=== PATIENT | male | born 1950 | race African-American/Black ===

== ENCOUNTER 2016-11-09 19:57 | Inpatient (IN) | payer OTHER ==
[~2016-11-09] VITALS: Ht 182.9 cm; Wt 92.1 kg
[2016-11-09 22:00] VITALS: Ht 182.9 cm; Wt 92.1 kg
[2016-11-09 22:35] VITALS: BP 138/79; RESP 18
[2016-11-10] MEDS ORDERED: ACETAMINOPHEN 325 MG TAB PO PRN (01:00)
[2016-11-10] MEDS ORDERED: MAGNESIUM HYDROXIDE 30ML CUP PO PRN (01:00)
[2016-11-10] MEDS ORDERED: BISACODYL 10 MG SUPP PR PRN (01:00)
[2016-11-10] MEDS ORDERED: LACTULOSE 30ML CUP PO PRN (01:00)
[2016-11-10 01:28] LABS: ADD UMIC NO; UR ASCORBIC ACID NEGATIVE (NEGATIVE); UR BILIRUBIN (Dip) NEGATIVE (NEGATIVE); UR BLOOD (Dip) NEGATIVE (NEGATIVE); UR CLARITY CLEAR (CLEAR); UR COLOR YELLOW (YELLOW); UR GLUCOSE (Dip) NEGATIVE (NEGATIVE); UR KETONES (Dip) NEGATIVE (NEGATIVE); UR LEUKOCYTE ESTERASE (Dip) NEGATIVE Leu/ul (NEGATIVE); UR NITRITE (Dip) NEGATIVE (NEGATIVE); UR TOTAL PROTEIN (Dip) NEGATIVE (NEGATIVE); UR UROBILINOGEN (Dip) NEGATIVE (NEGATIVE)
[2016-11-10 02:00] VITALS: BP 135/68; RESP 18
[2016-11-10 07:43] LABS: BASOPHILS % 0.2 % (0.0-2.0); EOSINOPHILS # 0.2 10^3/ul (0.0-0.5); HEMATOCRIT 45.4 % (42.0-52.0); LYMPHOCYTES # 2.1 10^3/ul (0.8-2.9); LYMPHOCYTES % 50.7 % (15.0-51.0); MEAN CORPUSCULAR HEMOGLOBIN 32.6 pg (29.0-33.0); MEAN CORPUSCULAR HGB CONC 35.2 g/dl (32.0-37.0); MEAN CORPUSCULAR VOLUME 92.5 fl (82.0-101.0); MEAN PLATELET VOLUME 9.9 fl (7.4-10.4); MONOCYTE # 0.6 10^3/ul (0.3-0.9); MONOCYTES % 14.8 % (0.0-11.0); NEUTROPHIL # 1.2 10^3/ul (1.6-7.5); NEUTROPHILS % 29.1 % (39.0-77.0); PLATELET COUNT 146 10^3/UL (140-415); RED BLOOD COUNT 4.91 10^6/ul (4.70-6.10); RED CELL DISTRIBUTION WIDTH 12.3 % (11.5-14.5); WHITE BLOOD COUNT 4.2 10^3/ul (4.8-10.8)
[2016-11-10 08:00] VITALS: BP 140/70; RESP 18
[2016-11-10 08:08] LABS: ALBUMIN 3.7 g/dl (3.3-4.9); ALBUMIN/GLOBULIN RATIO 0.9; BILIRUBIN,INDIRECT 0.6 mg/dl (0-1.1); BILIRUBIN,TOTAL 0.6 mg/dl (0.2-1.3); CALCIUM 10.7 mg/dl (8.4-10.2); CREATININE 0.92 mg/dl (0.61-1.24); TOTAL PROTEIN 7.8 g/dl (6.1-8.1)
[2016-11-10] MEDS: LISINOPRIL 20 MG TAB PO SCH (09:13)
[2016-11-10] MEDS: ASPIRIN 325 MG TAB PO SCH (09:13)
[2016-11-10] MEDS: LOSARTAN 50 MG TAB PO SCH (09:13)
[2016-11-10] MEDS: HYDROCHLOROTHIAZIDE 12.5 MG CAP PO SCH (09:14)
[2016-11-10] MEDS: DOCUSATE SODIUM 100 MG CAP PO SCH ×2 (09:14→20:54)
--- NOTE | 2016-11-10 09:56 | CONS ---
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 Hypertension 2. dysphagia 3. Impairments in self-care, mobility and cognition. PLAN: The patient has been admitted for comprehensive interdisciplinary acute rehab and is anticipated to tolerate 3 hours of daily therapy in divided doses for at least 5/7 days a week. The treatment plan will include: 1. Physical therapy to focus on bed mobility, transfers, and household ambulation with the goal of having the patient reach a standby assist for ambulation. 2. Occupational therapy to focus on hygiene, grooming, dressing, bathing, and toileting activities with the goal of having the patient reach a standby assist level. 3. Speech therapy for full cognitive and communication assessment and retraining in addition to dysphagia management with the goal of having the patient return to baseline cognition, express basic needs and meet nutritional needs by mouth. 4. Rehabilitation nursing for carryover of therapeutic interventions, the goal of continent of bowel and bladder, the goal of pain adequately managed on oral medications. ESTIMATED LENGTH OF STAY: 14 days. DISPOSITION GOAL: Home. Rehabilitation Barrier: Weakness Intervention for barrier: Interdisciplinary rehab I acknowledge that I performed a full physical examination on this patient within 24 hours of admission to the rehabilitation unit and believe the patient is a good candidate for comprehensive interdisciplinary rehab care and is anticipated to make reasonable goals in a reasonable period of time as outlined above. Consultation Date/Type/Reason Admit Date/Time Nov 09, 2016 at 20:40 Past Medical History FUNCTIONAL HISTORY: Prior to recent events, the patient was independent in self-care tasks and mobility. Currently, patient requires moderate assist for self-care and mobility tasks. I have reviewed the preadmission screen and the patient's current functional status is consistent with the preadmission screen. SOCIAL HISTORY: The patient lives at home and hopes to return there upon discharge. Social History Smoking Status: Former smoker Exam/Review of Systems Vital Signs Vitals Vital Signs Date Time Temp Pulse Resp B/P Pulse Ox O2 Delivery O2 Flow Rate FiO2 11/10/16 08:00 97.9 57 18 140/70 97 Intake and Output 11/09/16 11/09/16 11/10/16 14:59 22:59 06:59 Intake Total 990 ml Output Total 350 ml Balance 640 ml Results Result Diagram: 11/10/16 0636 11/10/16 0636 Results 24 hrs Laboratory Tests Test 11/10/16 06:36 White Blood Count 4.2 L Red Blood Count 4.91 Hemoglobin 16.0 Hematocrit 45.4 Mean Corpuscular Volume 92.5 Mean Corpuscular Hemoglobin 32.6 Mean Corpuscular Hemoglobin Concent 35.2 Red Cell Distribution Width 12.3 Platelet Count 146 Mean Platelet Volume 9.9 Neutrophils % 29.1 L Lymphocytes % 50.7 Monocytes % 14.8 H Eosinophils % 5.0 Basophils % 0.2 Nucleated Red Blood Cells % 0.0 Neutrophils # 1.2 L Lymphocytes # 2.1 Monocytes # 0.6 Eosinophils # 0.2 Basophils # 0.0 Nucleated Red Blood Cells # 0.0 Sodium Level 142 Potassium Level 4.0 Chloride Level 100 Carbon Dioxide Level 28 Anion Gap 18 H Blood Urea Nitrogen 13 Creatinine 0.92 Glucose Level 97 Calcium Level 10.7 H Total Bilirubin 0.6 Direct Bilirubin 0.00 Indirect Bilirubin 0.6 Aspartate Amino Transf (AST/SGOT) 26 Alanine Aminotransferase (ALT/SGPT) 37 Alkaline Phosphatase 73 Total Protein 7.8 Albumin 3.7 Globulin 4.10 H Albumin/Globulin Ratio 0.90 Medications Medications Current Medications Docusate Sodium (Colace) 100 mg BID PO Last administered on 11/10/16 09:14; Admin Dose 100 MG; Start 11/10/16 at 09:00 Senna (Senokot) 1 tab HS PO ; Start 11/10/16 at 21:00 Acetaminophen (Tylenol Tab) 650 mg Q4H PRN PO PAIN; Start 11/10/16 at 01:00 Bisacodyl (Dulcolax Supp) 10 mg DAILY PRN [place] CONSTIPATION; Start 11/10/16 at 01 :00 Magnesium Hydroxide (Milk Of Mag) 30 ml BID PRN [place] CONSTIPATION; Start at 01:00 Lactulose (Enulose) 20 gm DAILY PRN [place] CONSTIPATION; Start 11/10/16 at 01:00 Aspirin (Aspirin) 325 mg DAILY PO Last administered on 11/10/16 09:13; Admin Dose 325 MG; Start 11/10/16 at 09:00 Atorvastatin Calcium (Lipitor) 20 mg DAILY@21 PO ; Start 11/10/16 at 21:00 Clonidine (Catapres) 0.1 mg Q12 PO Last administered on 11/10/16 09:14; Admin Dose 0.1 MG; Start 11/10/16 at 09:00 Losartan Potassium (Cozaar) 50 mg DAILY PO Last administered on 11/10/16 09:13 ; Admin Dose 50 MG; Start 11/10/16 at 09:00 Hydrochlorothiazide (Hydrochlorothiazide) 12.5 mg DAILY PO Last administered on 11/10/16 09:14; Admin Dose 12.5 MG; Start 11/10/16 at 09:00 Lisinopril (Zestril) 20 mg DAILY PO Last administered on 11/10/16 09:13; Admin Dose 20 MG; Start 11/10/16 at 09:00 TASIA TINEO MD Nov 10, 2016 09:56
--- NOTE | 2016-11-10 11:15 | HP ---
Date/Time of Note Date/Time of Note DATE: 11/10/16 TIME: 11:09 Assessment/Plan VTE Prophylaxis VTE Prophylaxis Intervention: ambulation Lines/Catheters Urinary Cath still in place: No Assessment/Plan Chief Complaint/Hosp Course 1. S/p CVA with right side weakness 2. Hypertension, controlled 3. PVD 4. Constipation 5. Dyslipidemia 6. Overweight Problems: Assessment/Plan 1. Rehabilitation PT and OT 2. Normalization kidney function HPI/ROS Admit Date/Time Admit Date/Time Nov 09, 2016 at 20:40 Hx of Present Illness pt was transferred from [facility] with Right side weakness ROS asymmetrical face Subjective hx not possible: pt critical Constitutional: fatigue ENT: no complaints, pain Respiratory: cough Cardiovascular: edema Gastrointestinal: constipation, No decreased appetite, No diarrhea, No flatus, No nausea, No no complaints, No other, No pain, No passing stool, No vomiting Genitourinary: bleeding, dysuria, No discharge, No flank pain, No hematuria, No no complaints, No other Musculoskeletal: back pain, bone/joint pain, other (left side weakness, especially left arm), No neck pain, No no complaints, No restricted range of motion, No swelling Skin: bruising, erythema, No laceration, No no complaints, No other, No pruritis, No rash, No skin lesions Neurologic: confusion, dizziness, focal-weakness, headache, no complaints, other, seizure, syncope Endocrine: no complaints Lymphatic: no complaints Psychological: no complaints PMH/Family/Social Past Medical History Medical History: high cholesterol, hypertension, other (PVD) Past Surgical History Past Surgical Hx: noncontributory Family History Significant Family History: no pertinent family hx Social History Alcohol Use: rarely Smoking Status: Former smoker Drug Use: none Exam/Review of Systems Vital Signs Vitals Vital Signs Date Time Temp Pulse Resp B/P Pulse Ox O2 Delivery O2 Flow Rate FiO2 11/10/16 08:00 97.9 57 18 140/70 97 Intake and Output 11/09/16 11/09/16 11/10/16 15:00 23:00 07:00 Intake Total 990 ml Output Total 350 ml Balance 640 ml Exam Constitutional: alert, oriented Psych: no complaints Head: normocephalic Eyes: nl conjunctiva ENMT: nl external ears & nose Neck: non-tender, supple Respiratory: clear to auscultation Cardiovascular: diastolic murmur, regular rate and rhythm Gastrointestinal: ascites, soft Genitourinary - Male: CVA tenderness, nl penis, No discharge, No nl scrotum, No other Musculoskeletal: joint tenderness, muscle weakness (left side of the body) Extremities: calf tenderness, No clubbing, No cyanosis, No edema, No normal pulses, No other, No palpable cord, No pitting pedal edema, No tenderness Neurological: reflexes (decreases left side) Labs Result Diagram: 11/10/1636 11/10/1636 Medications Medications Current Medications Docusate Sodium (Colace) 100 mg BID PO Last administered on 11/10/16 09:14; Admin Dose 100 MG; Start 11/10/16 at 09:00 Senna (Senokot) 1 tab HS PO ; Start 11/10/16 at 21:00 Acetaminophen (Tylenol Tab) 650 mg Q4H PRN PO PAIN; Start 11/10/16 at 01:00 Bisacodyl (Dulcolax Supp) 10 mg DAILY PRN [place] CONSTIPATION; Start 11/10/16 at 01 :00 Magnesium Hydroxide (Milk Of Mag) 30 ml BID PRN [place] CONSTIPATION; Start at 01:00 Lactulose (Enulose) 20 gm DAILY PRN [place] CONSTIPATION; Start 11/10/16 at 01:00 Aspirin (Aspirin) 325 mg DAILY PO Last administered on 11/10/16 09:13; Admin Dose 325 MG; Start 11/10/16 at 09:00 Atorvastatin Calcium (Lipitor) 20 mg DAILY@21 PO ; Start 11/10/16 at 21:00 Clonidine (Catapres) 0.1 mg Q12 PO Last administered on 11/10/16 09:14; Admin Dose 0.1 MG; Start 11/10/16 at 09:00 Losartan Potassium (Cozaar) 50 mg DAILY PO Last administered on 11/10/16 09:13 ; Admin Dose 50 MG; Start 11/10/16 at 09:00 Hydrochlorothiazide (Hydrochlorothiazide) 12.5 mg DAILY PO Last administered on 11/10/16 09:14; Admin Dose 12.5 MG; Start 11/10/16 at 09:00 Lisinopril (Zestril) 20 mg DAILY PO Last administered on 11/10/16 09:13; Admin Dose 20 MG; Start 11/10/16 at 09:00 KAMRYN WALKER Nov 10, 2016 11:15
[2016-11-10] MEDS: ATORVASTATIN 20 MG TAB PO SCH (20:54)
[2016-11-10] MEDS: SENNA TAB PO SCH (20:54)
[2016-11-10 22:02] VITALS: BP 128/67; RESP 18
[2016-11-11 02:00] VITALS: BP 140/70; RESP 18
[2016-11-11 07:30] VITALS: BP 126/71; RESP 20
[2016-11-11 07:39] LABS: CREATININE 0.97 mg/dl (0.61-1.24); POTASSIUM 3.9 mmol/L (3.5-5.1)
[2016-11-11] MEDS: ASPIRIN 325 MG TAB PO SCH (08:30)
[2016-11-11] MEDS: LISINOPRIL 20 MG TAB PO SCH (08:31)
[2016-11-11] MEDS: LOSARTAN 50 MG TAB PO SCH (08:31)
[2016-11-11] MEDS: HYDROCHLOROTHIAZIDE 12.5 MG CAP PO SCH (08:31)
[2016-11-11] MEDS: DOCUSATE SODIUM 100 MG CAP PO SCH ×2 (08:31→20:42)
--- NOTE | 2016-11-11 10:53 | PN ---
Date/Time of Note Date/Time of Note DATE: 11/11/16 TIME: 10:49 Assessment/Plan VTE Prophylaxis VTE Prophylaxis Intervention: other Lines/Catheters Urinary Cath still in place: No Assessment/Plan Assessment/Plan 1. 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 Continue PT/OT/ST. Min Assist to CGA for gait. Continue secondary stroke prevention per internal medicine/neurology. 2. Hypertension. BP controlled. Continue medical management. 3. Dyslipidemia. Continue statin. Subjective 24 Hr Interval Summary Free Text/Dictation Rehab progress note Subjective: No acute complaints. ROS: Denies headache, no chest pain, no shortness of breath, no abdominal pain, no nausea or vomiting, no chills. Exam/Review of Systems Vital Signs Vitals Vital Signs Date Time Temp Pulse Resp B/P Pulse Ox O2 Delivery O2 Flow Rate FiO2 11/11/16 07:30 98.7 64 20 126/71 96 Intake and Output 11/10/16 11/10/16 11/11/16 15:00 23:00 07:00 Intake Total 800 ml 1320 ml 450 ml Output Total 2 ml Balance 800 ml 1318 ml 450 ml Exam General: Awake, alert, no acute distress CV: Regular rate, s1s2 Lungs: Clear to auscultation, no wheezing Abdomen soft, nontender Extremities without cyanosis, nontender Neuro: Right sided hemiparesis, per patient improving. Follows simple commands. Results Result Diagram: 11/10/16 0636 11/11/16 0620 Results 24 hrs Laboratory Tests Test 11/11/16 06:20 Sodium Level 137 Potassium Level 3.9 Chloride Level 100 Carbon Dioxide Level 28 Anion Gap 13 Blood Urea Nitrogen 14 Creatinine 0.97 Glucose Level 103 Calcium Level 11.0 H Medications Medications Current Medications Docusate Sodium (Colace) 100 mg BID PO Last administered on 11/11/16 08:31; Admin Dose 100 MG; Start 11/10/16 at 09:00 Senna (Senokot) 1 tab HS PO Last administered on 11/10/16 20:54; Admin Dose 1 TAB; Start 11/10/16 at 21:00 Acetaminophen (Tylenol Tab) 650 mg Q4H PRN PO PAIN; Start 11/10/16 at 01:00 Bisacodyl (Dulcolax Supp) 10 mg DAILY PRN [place] CONSTIPATION; Start 11/10/16 at 01 :00 Magnesium Hydroxide (Milk Of Mag) 30 ml BID PRN PO CONSTIPATION; Start at 01:00 Lactulose (Enulose) 20 gm DAILY PRN [place] CONSTIPATION; Start 11/10/16 at 01:00 Aspirin (Aspirin) 325 mg DAILY PO Last administered on 11/11/16 08:30; Admin Dose 325 MG; Start 11/10/16 at 09:00 Atorvastatin Calcium (Lipitor) 20 mg DAILY@21 PO Last administered on 20:54; Admin Dose 20 MG; Start 11/10/16 at 21:00 Clonidine (Catapres) 0.1 mg Q12 PO Last administered on 11/11/16 08:31; Admin Dose 0.1 MG; Start 11/10/16 at 09:00 Losartan Potassium (Cozaar) 50 mg DAILY PO Last administered on 11/11/16 08:31 ; Admin Dose 50 MG; Start 11/10/16 at 09:00 Hydrochlorothiazide (Hydrochlorothiazide) 12.5 mg DAILY PO Last administered on 11/11/16 08:31; Admin Dose 12.5 MG; Start 11/10/16 at 09:00 Lisinopril (Zestril) 20 mg DAILY PO Last administered on 11/11/16 08:31; Admin Dose 20 MG; Start 11/10/16 at 09:00 FRANCO HUGHES Nov 11, 2016 10:53
--- NOTE | 2016-11-11 11:15 | PN ---
Date/Time of Note Date/Time of Note DATE: 11/11/16 TIME: 11:13 Assessment/Plan VTE Prophylaxis VTE Prophylaxis Intervention: LMWH Lines/Catheters Urinary Cath still in place: No Assessment/Plan Chief Complaint/Hosp Course 1. S/p CVA with right side weakness 2. Hypertension, controlled 3. PVD 4. Constipation 5. Dyslipidemia 6. Overweight Problems: Assessment/Plan 1.. COntinue rehabilitation 2.Increase constipation medications Subjective 24 Hr Interval Summary Constitutional: no complaints Gastrointestinal: constipation Exam/Review of Systems Vital Signs Vitals Vital Signs Date Time Temp Pulse Resp B/P Pulse Ox O2 Delivery O2 Flow Rate FiO2 11/11/16 07:30 98.7 64 20 126/71 96 Intake and Output 11/10/16 11/10/16 11/11/16 15:00 23:00 07:00 Intake Total 800 ml 1320 ml 450 ml Output Total 2 ml Balance 800 ml 1318 ml 450 ml Exam Constitutional: alert, oriented Musculoskeletal: muscle weakness Results Result Diagram: 11/10/16 0636 11/11/16 0620 Results 24 hrs Laboratory Tests Test 11/11/16 06:20 Sodium Level 137 Potassium Level 3.9 Chloride Level 100 Carbon Dioxide Level 28 Anion Gap 13 Blood Urea Nitrogen 14 Creatinine 0.97 Glucose Level 103 Calcium Level 11.0 H Medications Medications Current Medications Docusate Sodium (Colace) 100 mg BID PO Last administered on 11/11/16 08:31; Admin Dose 100 MG; Start 11/10/16 at 09:00 Senna (Senokot) 1 tab HS PO Last administered on 11/10/16 20:54; Admin Dose 1 TAB; Start 11/10/16 at 21:00 Acetaminophen (Tylenol Tab) 650 mg Q4H PRN PO PAIN; Start 11/10/16 at 01:00 Bisacodyl (Dulcolax Supp) 10 mg DAILY PRN [place] CONSTIPATION; Start 11/10/16 at 01 :00 Magnesium Hydroxide (Milk Of Mag) 30 ml BID PRN PO CONSTIPATION; Start at 01:00 Lactulose (Enulose) 20 gm DAILY PRN PO CONSTIPATION; Start 11/10/16 at 01:00 Aspirin (Aspirin) 325 mg DAILY PO Last administered on 11/11/16 08:30; Admin Dose 325 MG; Start 11/10/16 at 09:00 Atorvastatin Calcium (Lipitor) 20 mg DAILY@21 PO Last administered on 20:54; Admin Dose 20 MG; Start 11/10/16 at 21:00 Clonidine (Catapres) 0.1 mg Q12 PO Last administered on 11/11/16 08:31; Admin Dose 0.1 MG; Start 11/10/16 at 09:00 Losartan Potassium (Cozaar) 50 mg DAILY PO Last administered on 11/11/16 08:31 ; Admin Dose 50 MG; Start 11/10/16 at 09:00 Hydrochlorothiazide (Hydrochlorothiazide) 12.5 mg DAILY PO Last administered on 11/11/16 08:31; Admin Dose 12.5 MG; Start 11/10/16 at 09:00 Lisinopril (Zestril) 20 mg DAILY PO Last administered on 11/11/16 08:31; Admin Dose 20 MG; Start 11/10/16 at 09:00 KAMRYN WALKER Nov 11, 2016 11:15
[2016-11-11 14:00] VITALS: BP 112/58; RESP 20
[2016-11-11] MEDS: SENNA TAB PO SCH (20:43)
[2016-11-11] MEDS: ATORVASTATIN 20 MG TAB PO SCH (20:43)
[2016-11-12 02:00] VITALS: BP 119/65; RESP 20
[2016-11-12 08:00] VITALS: BP 140/69; PULSE 60; RESP 18
[2016-11-12] MEDS: DOCUSATE SODIUM 100 MG CAP PO SCH ×2 (08:59→21:00)
[2016-11-12] MEDS: ASPIRIN 325 MG TAB PO SCH (09:00)
[2016-11-12] MEDS: LOSARTAN 50 MG TAB PO SCH (09:00)
[2016-11-12] MEDS: HYDROCHLOROTHIAZIDE 12.5 MG CAP PO SCH (09:01)
[2016-11-12] MEDS: LISINOPRIL 20 MG TAB PO SCH (09:01)
--- NOTE | 2016-11-12 09:35 | PN ---
Date/Time of Note Date/Time of Note DATE: 11/12/16 TIME: 09:34 Assessment/Plan VTE Prophylaxis VTE Prophylaxis Intervention: other Lines/Catheters Urinary Cath still in place: No Assessment/Plan Assessment/Plan 1. 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 Continue PT/OT/ST. Transfers with CGA. Continue secondary stroke prevention. 2. Hypertension. BP controlled. Continue medical management per internal medicine. 3. Dyslipidemia. Continue statin. Subjective 24 Hr Interval Summary Free Text/Dictation Rehab progress note Subjective: No acute complaints. No overnight events per nursing staff. ROS: Denies chest pain, no shortness of breath, no abdominal pain, no nausea or vomiting, no chills, no headache, no dizziness. Exam/Review of Systems Vital Signs Vitals Vital Signs Date Time Temp Pulse Resp B/P Pulse Ox O2 Delivery O2 Flow Rate FiO2 11/12/16 02:00 98.3 66 20 119/65 97 Intake and Output 11/11/16 11/11/16 11/12/16 15:00 23:00 07:00 Intake Total 1340 ml 240 ml Output Total 350 ml Balance 1340 ml -110 ml Exam General: Awake, alert, no acute distress CV: Regular rate, s1s2 Lungs: Clear to auscultation, no wheezing or crackles Abdomen soft, nontender Extremities without cyanosis, no new swelling Neuro: No focal changes. Follows simple commands. Results Result Diagram: 11/10/16 0636 11/11/16 0620 Medications Medications Current Medications Docusate Sodium (Colace) 100 mg BID PO Last administered on 11/12/16 08:59; Admin Dose 100 MG; Start 11/10/16 at 09:00 Senna (Senokot) 1 tab HS PO Last administered on 11/11/16 20:43; Admin Dose 1 TAB; Start 11/10/16 at 21:00 Acetaminophen (Tylenol Tab) 650 mg Q4H PRN PO PAIN; Start 11/10/16 at 01:00 Bisacodyl (Dulcolax Supp) 10 mg DAILY PRN [place] CONSTIPATION; Start 11/10/16 at 01 :00 Magnesium Hydroxide (Milk Of Mag) 30 ml BID PRN PO CONSTIPATION; Start at 01:00 Lactulose (Enulose) 20 gm DAILY PRN PO CONSTIPATION; Start 11/10/16 at 01:00 Aspirin (Aspirin) 325 mg DAILY PO Last administered on 11/12/16 09:00; Admin Dose 325 MG; Start 11/10/16 at 09:00 Atorvastatin Calcium (Lipitor) 20 mg DAILY@21 PO Last administered on 20:43; Admin Dose 20 MG; Start 11/10/16 at 21:00 Clonidine (Catapres) 0.1 mg Q12 PO Last administered on 11/12/16 09:00; Admin Dose 0.1 MG; Start 11/10/16 at 09:00 Losartan Potassium (Cozaar) 50 mg DAILY PO Last administered on 11/12/16 09:00 ; Admin Dose 50 MG; Start 11/10/16 at 09:00 Hydrochlorothiazide (Hydrochlorothiazide) 12.5 mg DAILY PO Last administered on 11/12/16 09:01; Admin Dose 12.5 MG; Start 11/10/16 at 09:00 Lisinopril (Zestril) 20 mg DAILY PO Last administered on 11/12/16 09:01; Admin Dose 20 MG; Start 11/10/16 at 09:00 FRANCO HUGHES Nov 12, 2016 09:35
[2016-11-12 20:00] VITALS: BP 143/81; RESP 18
[2016-11-12] MEDS: SENNA TAB PO SCH (21:00)
[2016-11-12] MEDS: ATORVASTATIN 20 MG TAB PO SCH (21:03)
--- NOTE | 2016-11-12 22:50 | PN ---
Date/Time of Note Date/Time of Note DATE: 11/12/16 TIME: 22:48 Assessment/Plan VTE Prophylaxis VTE Prophylaxis Intervention: other Lines/Catheters Urinary Cath still in place: No Assessment/Plan Chief Complaint/Hosp Course CVA HTN HLD PLAN T OT Problems: Subjective 24 Hr Interval Summary Respiratory: no complaints Cardiovascular: no complaints Gastrointestinal: no complaints Exam/Review of Systems Vital Signs Vitals Vital Signs Date Time Temp Pulse Resp B/P Pulse Ox O2 Delivery O2 Flow Rate FiO2 11/12/16 20:00 98.5 72 18 143/81 98 11/12/16 08:00 Room Air Intake and Output 11/11/16 11/11/16 11/12/16 15:00 23:00 07:00 Intake Total 1340 ml 240 ml Output Total 350 ml Balance 1340 ml -110 ml Exam Neck: supple Respiratory: clear to auscultation Cardiovascular: regular rate and rhythm Gastrointestinal: soft Musculoskeletal: nl extremities to inspection Neurological: other (rt side weakness) Results Result Diagram: 11/10/16 0636 11/11/16 0620 Medications Medications Current Medications Docusate Sodium (Colace) 100 mg BID PO Last administered on 11/12/16 08:59; Admin Dose 100 MG; Start 11/10/16 at 09:00 Senna (Senokot) 1 tab HS PO Last administered on 11/11/16 20:43; Admin Dose 1 TAB; Start 11/10/16 at 21:00 Acetaminophen (Tylenol Tab) 650 mg Q4H PRN PO PAIN; Start 11/10/16 at 01:00 Bisacodyl (Dulcolax Supp) 10 mg DAILY PRN [place] CONSTIPATION; Start 11/10/16 at 01 :00 Magnesium Hydroxide (Milk Of Mag) 30 ml BID PRN PO CONSTIPATION; Start at 01:00 Lactulose (Enulose) 20 gm DAILY PRN PO CONSTIPATION; Start 11/10/16 at 01:00 Aspirin (Aspirin) 325 mg DAILY PO Last administered on 11/12/16 09:00; Admin Dose 325 MG; Start 11/10/16 at 09:00 Atorvastatin Calcium (Lipitor) 20 mg DAILY@21 PO Last administered on 21:03; Admin Dose 20 MG; Start 11/10/16 at 21:00 Clonidine (Catapres) 0.1 mg Q12 PO Last administered on 11/12/16 21:06; Admin Dose 0.1 MG; Start 11/10/16 at 09:00 Losartan Potassium (Cozaar) 50 mg DAILY PO Last administered on 11/12/16 09:00 ; Admin Dose 50 MG; Start 11/10/16 at 09:00 Hydrochlorothiazide (Hydrochlorothiazide) 12.5 mg DAILY PO Last administered on 11/12/16 09:01; Admin Dose 12.5 MG; Start 11/10/16 at 09:00 Lisinopril (Zestril) 20 mg DAILY PO Last administered on 11/12/16 09:01; Admin Dose 20 MG; Start 11/10/16 at 09:00 NICKIE AUSTIN MD Nov 12, 2016 22:50
[2016-11-13 02:00] VITALS: BP 103/55; RESP 18
[2016-11-13 07:30] VITALS: BP 117/76; RESP 20
[2016-11-13 07:55] LABS: ALBUMIN 3.9 g/dl (3.3-4.9); BILIRUBIN,INDIRECT 0.3 mg/dl (0-1.1); BILIRUBIN,TOTAL 0.3 mg/dl (0.2-1.3); CALCIUM 11.1 mg/dl (8.4-10.2); CREATININE 1.04 mg/dl (0.61-1.24); POTASSIUM 3.9 mmol/L (3.5-5.1); TOTAL PROTEIN 7.8 g/dl (6.1-8.1)
[2016-11-13] MEDS: ASPIRIN 325 MG TAB PO SCH (09:01)
[2016-11-13] MEDS: LOSARTAN 50 MG TAB PO SCH (09:02)
[2016-11-13] MEDS: LISINOPRIL 20 MG TAB PO SCH (09:02)
[2016-11-13] MEDS: HYDROCHLOROTHIAZIDE 12.5 MG CAP PO SCH (09:03)
[2016-11-13] MEDS: DOCUSATE SODIUM 100 MG CAP PO SCH ×2 (09:03→20:18)
--- NOTE | 2016-11-13 13:24 | CONS ---
Date/Time of Note Date/Time of Note DATE: 11/13/16 TIME: 13:24 Consult Date/Type/Reason Admit Date/Time Nov 09, 2016 at 20:40 Initial Consult Date Objective Vital Signs Date Time Temp Pulse Resp B/P Pulse Ox O2 Delivery O2 Flow Rate FiO2 11/13/16 07:30 98.2 69 20 117/76 97 11/12/16 08:00 Room Air Intake and Output 11/12/16 11/12/16 11/13/16 15:00 23:00 07:00 Intake Total 480 ml 280 ml Balance 480 ml 280 ml INTERDISCIPLINARY TEAM CONFERENCE BOWEL- Cont BLADDER-Cont SKIN- intact OT- DRESSING-min BATHING-min TOILETING-min PT- BED MOBILITY-sba TRANSFERS-sba AMBULATION-sba 150 feet SPEECH- COGNITION-s DYPHAGIA-improved A/P- Interdisciplinary team conference held today. Please see interdisciplinary sheet. Working toward d.c. on 11/16 with post discharge follow up of physical therapy, occupational therapy. Results/Medications Result Diagram: 11/10/16 0636 11/13/16 0621 Results 24 hrs Laboratory Tests Test 11/13/16 06:21 Sodium Level 136 Potassium Level 3.9 Chloride Level 100 Carbon Dioxide Level 29 Anion Gap 11 Blood Urea Nitrogen 16 Creatinine 1.04 Glucose Level 104 Calcium Level 11.1 H Total Bilirubin 0.3 Direct Bilirubin 0.00 Indirect Bilirubin 0.3 Aspartate Amino Transf (AST/SGOT) 29 Alanine Aminotransferase (ALT/SGPT) 44 Alkaline Phosphatase 80 Total Protein 7.8 Albumin 3.9 Globulin 3.90 H Albumin/Globulin Ratio 1.00 Parathyroid Hormone (Intact) Pending Medications Current Medications Docusate Sodium (Colace) 100 mg BID PO Last administered on 11/13/16 09:03; Admin Dose 100 MG; Start 11/10/16 at 09:00 Senna (Senokot) 1 tab HS PO Last administered on 11/11/16 20:43; Admin Dose 1 TAB; Start 11/10/16 at 21:00 Acetaminophen (Tylenol Tab) 650 mg Q4H PRN PO PAIN; Start 11/10/16 at 01:00 Bisacodyl (Dulcolax Supp) 10 mg DAILY PRN [place] CONSTIPATION; Start 11/10/16 at 01 :00 Magnesium Hydroxide (Milk Of Mag) 30 ml BID PRN PO CONSTIPATION; Start at 01:00 Lactulose (Enulose) 20 gm DAILY PRN [place] CONSTIPATION; Start 11/10/16 at 01:00 Aspirin (Aspirin) 325 mg DAILY PO Last administered on 11/13/16 09:01; Admin Dose 325 MG; Start 11/10/16 at 09:00 Atorvastatin Calcium (Lipitor) 20 mg DAILY@21 PO Last administered on 21:03; Admin Dose 20 MG; Start 11/10/16 at 21:00 Clonidine (Catapres) 0.1 mg Q12 PO Last administered on 11/13/16 09:02; Admin Dose 0.1 MG; Start 11/10/16 at 09:00 Losartan Potassium (Cozaar) 50 mg DAILY PO Last administered on 11/13/16 09:02 ; Admin Dose 50 MG; Start 11/10/16 at 09:00 Hydrochlorothiazide (Hydrochlorothiazide) 12.5 mg DAILY PO Last administered on 11/13/16 09:03; Admin Dose 12.5 MG; Start 11/10/16 at 09:00 Lisinopril (Zestril) 20 mg DAILY PO Last administered on 11/13/16 09:02; Admin Dose 20 MG; Start 11/10/16 at 09:00 TASIA TINEO MD Nov 13, 2016 13:24
[2016-11-13 14:00] VITALS: BP 125/73; RESP 20
--- NOTE | 2016-11-13 19:11 | PN ---
Date/Time of Note Date/Time of Note DATE: 11/13/16 TIME: 19:10 Assessment/Plan VTE Prophylaxis VTE Prophylaxis Intervention: other Lines/Catheters Urinary Cath still in place: No Assessment/Plan Chief Complaint/Hosp Course CVA HTN HLD hypercalcemia PLAN T OT ck labs po water/liquid Problems: Subjective 24 Hr Interval Summary Respiratory: no complaints Cardiovascular: no complaints Gastrointestinal: no complaints Exam/Review of Systems Vital Signs Vitals Vital Signs Date Time Temp Pulse Resp B/P Pulse Ox O2 Delivery O2 Flow Rate FiO2 11/13/16 14:00 98.6 74 20 125/73 97 11/12/16 08:00 Room Air Intake and Output 11/12/16 11/12/16 11/13/16 15:00 23:00 07:00 Intake Total 480 ml 280 ml Balance 480 ml 280 ml Exam Respiratory: clear to auscultation Cardiovascular: regular rate and rhythm Gastrointestinal: soft Musculoskeletal: nl extremities to inspection Results Result Diagram: 11/10/16 0636 11/13/16 0621 Results 24 hrs Laboratory Tests Test 11/13/16 06:21 Sodium Level 136 Potassium Level 3.9 Chloride Level 100 Carbon Dioxide Level 29 Anion Gap 11 Blood Urea Nitrogen 16 Creatinine 1.04 Glucose Level 104 Calcium Level 11.1 H Total Bilirubin 0.3 Direct Bilirubin 0.00 Indirect Bilirubin 0.3 Aspartate Amino Transf (AST/SGOT) 29 Alanine Aminotransferase (ALT/SGPT) 44 Alkaline Phosphatase 80 Total Protein 7.8 Albumin 3.9 Globulin 3.90 H Albumin/Globulin Ratio 1.00 Parathyroid Hormone (Intact) Medications Medications Current Medications Docusate Sodium (Colace) 100 mg BID PO Last administered on 11/13/16 09:03; Admin Dose 100 MG; Start 11/10/16 at 09:00 Senna (Senokot) 1 tab HS PO Last administered on 11/11/16 20:43; Admin Dose 1 TAB; Start 11/10/16 at 21:00 Acetaminophen (Tylenol Tab) 650 mg Q4H PRN PO PAIN; Start 11/10/16 at 01:00 Bisacodyl (Dulcolax Supp) 10 mg DAILY PRN [place] CONSTIPATION; Start 11/10/16 at 01 :00 Magnesium Hydroxide (Milk Of Mag) 30 ml BID PRN PO CONSTIPATION; Start at 01:00 Lactulose (Enulose) 20 gm DAILY PRN PO CONSTIPATION; Start 11/10/16 at 01:00 Aspirin (Aspirin) 325 mg DAILY PO Last administered on 11/13/16 09:01; Admin Dose 325 MG; Start 11/10/16 at 09:00 Atorvastatin Calcium (Lipitor) 20 mg DAILY@21 PO Last administered on 21:03; Admin Dose 20 MG; Start 11/10/16 at 21:00 Clonidine (Catapres) 0.1 mg Q12 PO Last administered on 11/13/16 09:02; Admin Dose 0.1 MG; Start 11/10/16 at 09:00 Losartan Potassium (Cozaar) 50 mg DAILY PO Last administered on 11/13/16 09:02 ; Admin Dose 50 MG; Start 11/10/16 at 09:00 Hydrochlorothiazide (Hydrochlorothiazide) 12.5 mg DAILY PO Last administered on 11/13/16 09:03; Admin Dose 12.5 MG; Start 11/10/16 at 09:00 Lisinopril (Zestril) 20 mg DAILY PO Last administered on 11/13/16 09:02; Admin Dose 20 MG; Start 11/10/16 at 09:00 NICKIE AUSTIN MD Nov 13, 2016 19:11
[2016-11-13 19:32] LABS: PROTEIN/CREAT RATIO 0.07 RATIO
[2016-11-13 20:00] VITALS: BP 133/76; RESP 18
[2016-11-13] MEDS: ATORVASTATIN 20 MG TAB PO SCH (20:18)
[2016-11-13] MEDS: SENNA TAB PO SCH (20:18)
[2016-11-14 02:00] VITALS: BP 123/69; RESP 18
[2016-11-14 07:21] LABS: CALCIUM 11.2 mg/dl (8.4-10.2); MAGNESIUM 1.9 mg/dl (1.7-2.5); PHOSPHORUS 3.1 mg/dl (2.5-4.9)
[2016-11-14 07:49] VITALS: BP 106/55; RESP 18
[2016-11-14 08:30] VITALS: BP 133/71; PULSE 61
[2016-11-14] MEDS: ASPIRIN 325 MG TAB PO SCH (08:31)
[2016-11-14] MEDS: DOCUSATE SODIUM 100 MG CAP PO SCH ×2 (08:31→20:25)
[2016-11-14] MEDS: LOSARTAN 50 MG TAB PO SCH (08:32)
[2016-11-14] MEDS: LISINOPRIL 20 MG TAB PO SCH (08:32)
[2016-11-14] MEDS: HYDROCHLOROTHIAZIDE 12.5 MG CAP PO SCH (08:32)
--- NOTE | 2016-11-14 12:39 | CONS ---
Date/Time of Note Date/Time of Note DATE: 11/14/16 TIME: 12:38 Consult Date/Type/Reason Admit Date/Time Nov 09, 2016 at 20:40 Subjective Motivated Objective pulm-cta abd-soft sba ambulation Vital Signs Date Time Temp Pulse Resp B/P Pulse Ox O2 Delivery O2 Flow Rate FiO2 11/14/16 08:30 61 133/71 11/14/16 07:49 98.0 18 97 11/12/16 08:00 Room Air Intake and Output 11/13/16 11/13/16 11/14/16 15:00 23:00 07:00 Intake Total 620 ml Balance 620 ml Results/Medications Result Diagram: 11/10/16 0636 11/13/16 0621 Results 24 hrs Laboratory Tests Test 11/14/16 06:13 Calcium Level 11.2 H Ionized Calcium (Measured) 1.5 H Phosphorus Level 3.1 Magnesium Level 1.9 Medications Current Medications Docusate Sodium (Colace) 100 mg BID PO Last administered on 11/14/16 08:31; Admin Dose 100 MG; Start 11/10/16 at 09:00 Senna (Senokot) 1 tab HS PO Last administered on 11/13/16 20:18; Admin Dose 1 TAB; Start 11/10/16 at 21:00 Acetaminophen (Tylenol Tab) 650 mg Q4H PRN PO PAIN; Start 11/10/16 at 01:00 Bisacodyl (Dulcolax Supp) 10 mg DAILY PRN [place] CONSTIPATION; Start 11/10/16 at 01 :00 Magnesium Hydroxide (Milk Of Mag) 30 ml BID PRN PO CONSTIPATION; Start at 01:00 Lactulose (Enulose) 20 gm DAILY PRN PO CONSTIPATION; Start 11/10/16 at 01:00 Aspirin (Aspirin) 325 mg DAILY PO Last administered on 11/14/16 08:31; Admin Dose 325 MG; Start 11/10/16 at 09:00 Atorvastatin Calcium (Lipitor) 20 mg DAILY@21 PO Last administered on 20:18; Admin Dose 20 MG; Start 11/10/16 at 21:00 Clonidine (Catapres) 0.1 mg Q12 PO Last administered on 11/14/16 08:31; Admin Dose 0.1 MG; Start 11/10/16 at 09:00 Losartan Potassium (Cozaar) 50 mg DAILY PO Last administered on 11/14/16 08:32 ; Admin Dose 50 MG; Start 11/10/16 at 09:00 Hydrochlorothiazide (Hydrochlorothiazide) 12.5 mg DAILY PO Last administered on 11/14/16 08:32; Admin Dose 12.5 MG; Start 11/10/16 at 09:00 Lisinopril (Zestril) 20 mg DAILY PO Last administered on 11/14/16 08:32; Admin Dose 20 MG; Start 11/10/16 at 09:00 Assessment/Plan Additional Assessment/Plan Rehab- 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
--- NOTE | 2016-11-14 18:42 | PN ---
Date/Time of Note Date/Time of Note DATE: 11/14/16 TIME: 18:41 Assessment/Plan VTE Prophylaxis VTE Prophylaxis Intervention: other Lines/Catheters Urinary Cath still in place: No Assessment/Plan Chief Complaint/Hosp Course CVA HTN HLD hypercalcemia PLAN T OT ck labs po water/liquid us neck and scan spep upep aredia Problems: Subjective 24 Hr Interval Summary Cardiovascular: no complaints Gastrointestinal: no complaints Genitourinary: no complaints Exam/Review of Systems Vital Signs Vitals Vital Signs Date Time Temp Pulse Resp B/P Pulse Ox O2 Delivery O2 Flow Rate FiO2 11/14/16 08:30 61 133/71 11/14/16 07:49 98.0 18 97 11/12/16 08:00 Room Air Intake and Output 11/13/16 11/13/16 11/14/16 15:00 23:00 07:00 Intake Total 620 ml Balance 620 ml Exam Neck: supple Respiratory: clear to auscultation Cardiovascular: regular rate and rhythm Musculoskeletal: nl extremities to inspection Extremities: normal pulses Results Result Diagram: 11/10/16 0636 11/13/16 0621 Results 24 hrs Laboratory Tests Test 11/14/16 06:13 Calcium Level 11.2 H Ionized Calcium (Measured) 1.5 H Phosphorus Level 3.1 Magnesium Level 1.9 Medications Medications Current Medications Docusate Sodium (Colace) 100 mg BID PO Last administered on 11/14/16 08:31; Admin Dose 100 MG; Start 11/10/16 at 09:00 Senna (Senokot) 1 tab HS PO Last administered on 11/13/16 20:18; Admin Dose 1 TAB; Start 11/10/16 at 21:00 Acetaminophen (Tylenol Tab) 650 mg Q4H PRN PO PAIN; Start 11/10/16 at 01:00 Bisacodyl (Dulcolax Supp) 10 mg DAILY PRN [place] CONSTIPATION; Start 11/10/16 at 01 :00 Magnesium Hydroxide (Milk Of Mag) 30 ml BID PRN PO CONSTIPATION; Start at 01:00 Lactulose (Enulose) 20 gm DAILY PRN PO CONSTIPATION; Start 11/10/16 at 01:00 Aspirin (Aspirin) 325 mg DAILY PO Last administered on 11/14/16 08:31; Admin Dose 325 MG; Start 11/10/16 at 09:00 Atorvastatin Calcium (Lipitor) 20 mg DAILY@21 PO Last administered on 20:18; Admin Dose 20 MG; Start 11/10/16 at 21:00 Clonidine (Catapres) 0.1 mg Q12 PO Last administered on 11/14/16 08:31; Admin Dose 0.1 MG; Start 11/10/16 at 09:00 Losartan Potassium (Cozaar) 50 mg DAILY PO Last administered on 11/14/16 08:32 ; Admin Dose 50 MG; Start 11/10/16 at 09:00 Hydrochlorothiazide (Hydrochlorothiazide) 12.5 mg DAILY PO Last administered on 11/14/16 08:32; Admin Dose 12.5 MG; Start 11/10/16 at 09:00 Lisinopril 20 mg 20 mg DAILY PO Last administered on 11/14/16 08:32; Admin Dose 20 MG; Start 11/10/16 at 09:00 Pamidronate Disodium/Sodium Chloride (Aredia/NS) 520 ml @ 83.333 mls/ hr Q6H15M ONCE IV ; Start 11/14/16 at 20:00; Stop 11/15/16 at 02:14 NICKIE AUSTIN MD Nov 14, 2016 18:42
[2016-11-14 20:00] VITALS: BP 119/70; RESP 18
[2016-11-14] MEDS ORDERED: PAMIDRONATE 60 MG in SOD CHLORIDE 0.9% 500 ML IV ONE (20:00)
[2016-11-14] MEDS: SENNA TAB PO SCH (20:25)
[2016-11-14] MEDS: ATORVASTATIN 20 MG TAB PO SCH (20:25)
--- NOTE | 2016-11-15 00:03 | RADRPT ---
PROCEDURE: US Thyroid. CLINICAL INDICATION: Abnormal laboratory values. TECHNIQUE: Transverse and sagittal imaging of the thyroid gland was performed with a high frequency linear array transducer. Color-flow interrogation was performed as well. The images were reviewed on a PACS workstation. COMPARISON: None available. FINDINGS: The right lobe of the thyroid gland measures 4.0 x 1.9 x 1.5 cm. The left lobe of the thyroid gland measures 2.9 x 1.4 x 1.3 cm. The isthmus measures 1.9 mm thickness. Parenchymal echotexture: Normal. Vascularity: Normal. Right thyroid lobe nodules: None. Left thyroid lobe nodules: None. Isthmus nodules: None. IMPRESSION: 1. Unremarkable thyroid ultrasound. RPTAT: HLBP .Jose Gallagher MD, MD Date Time Electronically viewed and signed by .Jose Gallagher MD, MD on 11/15/2016 00:02 .P/
[2016-11-15 02:00] VITALS: BP 128/71; RESP 18
[2016-11-15 07:27] VITALS: BP 139/69; RESP 18
[2016-11-15 07:31] LABS: ALBUMIN 3.8 g/dl (3.3-4.9); ALBUMIN/GLOBULIN RATIO 0.97; BILIRUBIN,INDIRECT 0.5 mg/dl (0-1.1); BILIRUBIN,TOTAL 0.5 mg/dl (0.2-1.3); CALCIUM 11.1 mg/dl (8.4-10.2); CREATININE 1.11 mg/dl (0.61-1.24); POTASSIUM 3.8 mmol/L (3.5-5.1); TOTAL PROTEIN 7.7 g/dl (6.1-8.1)
[2016-11-15] MEDS: ASPIRIN 325 MG TAB PO SCH (08:43)
[2016-11-15] MEDS: HYDROCHLOROTHIAZIDE 12.5 MG CAP PO SCH (08:43)
[2016-11-15] MEDS: DOCUSATE SODIUM 100 MG CAP PO SCH ×2 (08:44→20:34)
[2016-11-15] MEDS: LISINOPRIL 20 MG TAB PO SCH (08:44)
[2016-11-15] MEDS: LOSARTAN 50 MG TAB PO SCH (08:44)
--- NOTE | 2016-11-15 09:39 | CONS ---
Date/Time of Note Date/Time of Note DATE: 11/15/16 TIME: 09:38 Consult Date/Type/Reason Admit Date/Time Nov 09, 2016 at 20:40 Objective s/sba ambulation 200 feet Vital Signs Date Time Temp Pulse Resp B/P Pulse Ox O2 Delivery O2 Flow Rate FiO2 11/15/16 07:27 98.2 56 18 139/69 97 11/12/16 08:00 Room Air Intake and Output 11/14/16 11/14/16 11/15/16 14:59 22:59 06:59 Intake Total 800 ml 400 ml 500 ml Balance 800 ml 400 ml 500 ml Results/Medications Result Diagram: 11/15/16 0624 Results 24 hrs Laboratory Tests Test 11/15/16 06:24 Sodium Level 138 Potassium Level 3.8 Chloride Level 102 Carbon Dioxide Level 29 Anion Gap 11 Blood Urea Nitrogen 15 Creatinine 1.11 Glucose Level 106 Calcium Level 11.1 H Total Bilirubin 0.5 Direct Bilirubin 0.00 Indirect Bilirubin 0.5 Aspartate Amino Transf (AST/SGOT) 24 Alanine Aminotransferase (ALT/SGPT) 38 Alkaline Phosphatase 77 Total Protein 7.7 Albumin 3.8 Globulin 3.90 H Albumin/Globulin Ratio 0.97 Medications Current Medications Docusate Sodium (Colace) 100 mg BID PO Last administered on 11/15/16 08:44; Admin Dose 100 MG; Start 11/10/16 at 09:00 Senna (Senokot) 1 tab HS PO Last administered on 11/14/16 20:25; Admin Dose 1 TAB; Start 11/10/16 at 21:00 Acetaminophen (Tylenol Tab) 650 mg Q4H PRN PO PAIN Last administered on 08:43; Admin Dose 650 MG; Start 11/10/16 at 01:00 Bisacodyl (Dulcolax Supp) 10 mg DAILY PRN [place] CONSTIPATION; Start 11/10/16 at 01 :00 Magnesium Hydroxide (Milk Of Mag) 30 ml BID PRN PO CONSTIPATION; Start at 01:00 Lactulose (Enulose) 20 gm DAILY PRN PO CONSTIPATION; Start 11/10/16 at 01:00 Aspirin (Aspirin) 325 mg DAILY PO Last administered on 11/15/16 08:43; Admin Dose 325 MG; Start 11/10/16 at 09:00 Atorvastatin Calcium (Lipitor) 20 mg DAILY@21 PO Last administered on 20:25; Admin Dose 20 MG; Start 11/10/16 at 21:00 Clonidine (Catapres) 0.1 mg Q12 PO Last administered on 11/15/16 08:44; Admin Dose 0.1 MG; Start 11/10/16 at 09:00 Losartan Potassium (Cozaar) 50 mg DAILY PO Last administered on 11/15/16 08:44 ; Admin Dose 50 MG; Start 11/10/16 at 09:00 Hydrochlorothiazide (Hydrochlorothiazide) 12.5 mg DAILY PO Last administered on 11/15/16 08:43; Admin Dose 12.5 MG; Start 11/10/16 at 09:00 Lisinopril (Zestril) 20 mg DAILY PO Last administered on 11/15/16 08:44; Admin Dose 20 MG; Start 11/10/16 at 09:00 Assessment/Plan Additional Assessment/Plan Rehab- 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
[2016-11-15] MEDS: ATORVASTATIN 20 MG TAB PO SCH (20:35)
[2016-11-15] MEDS: SENNA TAB PO SCH (20:35)
--- NOTE | 2016-11-15 21:22 | PN ---
Date/Time of Note Date/Time of Note DATE: 11/15/16 TIME: 21:21 Assessment/Plan VTE Prophylaxis VTE Prophylaxis Intervention: other Lines/Catheters IV C[facility]ter Type (from [facility] Saline Lock Urinary Cath still in place: No Assessment/Plan Chief Complaint/Hosp Course CVA HTN HLD hypercalcemia PLAN T OT ck labs po water/liquid us neck and scan spep upep aredia Problems: Subjective 24 Hr Interval Summary Cardiovascular: no complaints Gastrointestinal: no complaints Exam/Review of Systems Vital Signs Vitals Vital Signs Date Time Temp Pulse Resp B/P Pulse Ox O2 Delivery O2 Flow Rate FiO2 11/15/16 07:27 98.2 56 18 139/69 97 11/12/16 08:00 Room Air Intake and Output 11/14/16 11/14/16 11/15/16 15:00 23:00 07:00 Intake Total 800 ml 400 ml 500 ml Balance 800 ml 400 ml 500 ml Exam Neck: supple Respiratory: clear to auscultation Cardiovascular: regular rate and rhythm Gastrointestinal: soft Results Result Diagram: 11/15/16 0624 Results 24 hrs Laboratory Tests Test 11/15/16 06:24 11/15/16 12:25 Sodium Level 138 Potassium Level 3.8 Chloride Level 102 Carbon Dioxide Level 29 Anion Gap 11 Blood Urea Nitrogen 15 Creatinine 1.11 Glucose Level 106 Calcium Level 11.1 H Total Bilirubin 0.5 Direct Bilirubin 0.00 Indirect Bilirubin 0.5 Aspartate Amino Transf (AST/SGOT) 24 Alanine Aminotransferase (ALT/SGPT) 38 Alkaline Phosphatase 77 Total Protein 7.7 Albumin 3.8 Globulin 3.90 H Albumin/Globulin Ratio 0.97 Lab Scanned Report REFERENCE LAB Medications Medications Current Medications Docusate Sodium (Colace) 100 mg BID PO Last administered on 11/15/16 20:34; Admin Dose 100 MG; Start 11/10/16 at 09:00 Senna (Senokot) 1 tab HS PO Last administered on 11/15/16 20:35; Admin Dose 1 TAB; Start 11/10/16 at 21:00 Acetaminophen (Tylenol Tab) 650 mg Q4H PRN PO PAIN Last administered on 08:43; Admin Dose 650 MG; Start 11/10/16 at 01:00 Bisacodyl (Dulcolax Supp) 10 mg DAILY PRN [place] CONSTIPATION; Start 11/10/16 at 01 :00 Magnesium Hydroxide (Milk Of Mag) 30 ml BID PRN PO CONSTIPATION; Start at 01:00 Lactulose (Enulose) 20 gm DAILY PRN PO CONSTIPATION; Start 11/10/16 at 01:00 Aspirin (Aspirin) 325 mg DAILY PO Last administered on 11/15/16 08:43; Admin Dose 325 MG; Start 11/10/16 at 09:00 Atorvastatin Calcium (Lipitor) 20 mg DAILY@21 PO Last administered on 20:35; Admin Dose 20 MG; Start 11/10/16 at 21:00 Clonidine (Catapres) 0.1 mg Q12 PO Last administered on 11/15/16 20:35; Admin Dose 0.1 MG; Start 11/10/16 at 09:00 Losartan Potassium (Cozaar) 50 mg DAILY PO Last administered on 11/15/16 08:44 ; Admin Dose 50 MG; Start 11/10/16 at 09:00 Hydrochlorothiazide (Hydrochlorothiazide) 12.5 mg DAILY PO Last administered on 11/15/16 08:43; Admin Dose 12.5 MG; Start 11/10/16 at 09:00 Lisinopril (Zestril) 20 mg DAILY PO Last administered on 11/15/16 08:44; Admin Dose 20 MG; Start 11/10/16 at 09:00 NICKIE AUSTIN MD Nov 15, 2016 21:21
[2016-11-15 22:14] VITALS: BP 121/61; RESP 18
[2016-11-16 00:39] LABS: PROTEIN, TOTAL 7.5 g/dL (6.1-8.1)
[2016-11-16 02:00] VITALS: BP 133/63; RESP 18
[2016-11-16 03:17] LABS: PROTEIN/CREAT RATIO 0.05 RATIO
[2016-11-16 07:30] VITALS: BP 124/76; RESP 18
[2016-11-16] MEDS: LISINOPRIL 20 MG TAB PO SCH (08:26)
[2016-11-16] MEDS: LOSARTAN 50 MG TAB PO SCH (08:26)
[2016-11-16] MEDS: ASPIRIN 325 MG TAB PO SCH (08:26)
[2016-11-16] MEDS: DOCUSATE SODIUM 100 MG CAP PO SCH (08:27)
[2016-11-16 08:46] LABS: ALBUMIN 3.9 g/dl (3.3-4.9); ALBUMIN/GLOBULIN RATIO 0.92; BILIRUBIN,INDIRECT 0.5 mg/dl (0-1.1); BILIRUBIN,TOTAL 0.5 mg/dl (0.2-1.3); CREATININE 0.86 mg/dl (0.61-1.24); TOTAL PROTEIN 8.1 g/dl (6.1-8.1)
[2016-11-16] MEDS: HYDROCHLOROTHIAZIDE 12.5 MG CAP PO SCH (09:00)
[2016-11-16] MEDS ORDERED: CINACALCET 30 MG TAB PO SCH (09:30)
--- NOTE | 2016-11-16 13:08 | DS ---
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 dysphagia 3. Hypertension 4. Improvements in self-care, mobility and cognition. Patient Condition: Good Hx of Present Illness pt was transferred from [facility] with Right side weakness Hospital Course The patient was admitted for comprehensive interdisciplinary rehab and has made excellent functional gains. Patient progressed from moderate assist to Modified Independent level for self care and mobility. Patient is being discharged home with recommendation of home health PT and OT. Patient will follow up with PMD Primary Care Provider Braden Carter MD Pending Labs Laboratory Tests Test 11/15/16 23:30 11/16/16 07:58 Urine Random Creatinine 172.62mg/dl (20-370) Urine Protein/Creatinine Ratio 0.05RATIO Urine Total Protein 9.0mg/dl (0.0-11.9) Sodium Level 141mmol/L (135-144) Potassium Level 4.0mmol/L (3.5-5.1) Chloride Level 100mmol/L (97-110) Carbon Dioxide Level 28mmol/L (21-31) Anion Gap 17 (8-16) Blood Urea Nitrogen 13mg/dl (7-20) Creatinine 0.86mg/dl (0.61-1.24) Glucose Level 99mg/dl (70-220) Calcium Level 11.0mg/dl (8.4-10.2) Total Bilirubin 0.5mg/dl (0.2-1.3) Direct Bilirubin 0.00mg/dl (0.00-0.20) Indirect Bilirubin 0.5mg/dl (0-1.1) Aspartate Amino Transf (AST/SGOT) 24IU/L (15-46) Alanine Aminotransferase (ALT/SGPT) 43IU/L (13-69) Alkaline Phosphatase 80IU/L (42-121) Total Protein 8.1g/dl (6.1-8.1) Albumin 3.9g/dl (3.3-4.9) Globulin 4.20g/dl (1.3-3.2) Albumin/Globulin Ratio 0.92 TASIA TINEO MD Nov 16, 2016 13:08
[2016-11-16 14:00] VITALS: BP 128/68; RESP 18
[2016-11-16 18:13] LABS: ABNORMAL PROTEIN BAND 1 1.7 g/dL (NONE DETECTED); ALBUMIN 3.9 g/dL (3.8-4.8)
--- NOTE | 2016-11-16 19:14 | PN ---
Date/Time of Note Date/Time of Note DATE: 11/16/16 TIME: 19:14 Assessment/Plan VTE Prophylaxis VTE Prophylaxis Intervention: other Lines/Catheters IV Catheter Type (from Nrs): Saline Lock Urinary Cath still in place: No Assessment/Plan Chief Complaint/Hosp Course CVA HTN HLD hypercalcemia PLAN T OT ck labs po water/liquid us neck and scan spep upep aredia sensipar Problems: Subjective 24 Hr Interval Summary Cardiovascular: no complaints Gastrointestinal: no complaints Exam/Review of Systems Vital Signs Vitals Vital Signs Date Time Temp Pulse Resp B/P Pulse Ox O2 Delivery O2 Flow Rate FiO2 11/16/16 14:00 98.5 68 18 128/68 96 11/12/16 08:00 Room Air Intake and Output 11/15/16 11/15/16 11/16/16 15:00 23:00 07:00 Intake Total 850 ml 880 ml 300 ml Balance 850 ml 880 ml 300 ml Exam Respiratory: clear to auscultation Cardiovascular: regular rate and rhythm Gastrointestinal: soft Musculoskeletal: nl extremities to inspection Results Result Diagram: 11/16/16 0758 Results 24 hrs Laboratory Tests Test 11/15/16 23:30 11/16/16 07:58 Urine Random Creatinine 172.62 Urine Protein/Creatinine Ratio 0.05 Urine Total Protein 9.0 Sodium Level 141 Potassium Level 4.0 Chloride Level 100 Carbon Dioxide Level 28 Anion Gap 17 H Blood Urea Nitrogen 13 Creatinine 0.86 Glucose Level 99 Calcium Level 11.0 H Total Bilirubin 0.5 Direct Bilirubin 0.00 Indirect Bilirubin 0.5 Aspartate Amino Transf (AST/SGOT) 24 Alanine Aminotransferase (ALT/SGPT) 43 Alkaline Phosphatase 80 Total Protein 8.1 Albumin 3.9 Globulin 4.20 H Albumin/Globulin Ratio 0.92 NICKIE AUSTIN MD Nov 16, 2016 19:14
[2016-11-17 14:06] LABS: CREATININE, RANDOM URINE 177 mg/dL (20-370); PROTEIN/CREATININE RATIO 62 mg/g creat (22-128)
== END 2016-11-16 17:00 | disposition home health service (06) | DRG 57 ==
LOC: VRC 20:40
PROVIDERS: ADMIT Physical Medicine & Rehabilitation; ATTEND Internal Medicine Nephrology
PROC: F07Z5ZZ Bed Mobility Treatment (ICD-10-PCS; principal; 2016-11-09)
PROC: F08Z2ZZ Grooming/Personal Hygiene Treatment (ICD-10-PCS; 2016-11-09)
PROC: F06Z6ZZ Communicative/Cognitive Integration Skills Treatment (ICD-10-PCS; 2016-11-09)
DX: I69.951 Hemiplegia and hemiparesis following unspecified cerebrovascular disease affecting right dominant side (principal); I69.991 Dysphagia following unspecified cerebrovascular disease; R13.10 Dysphagia, unspecified; I10 Essential (primary) hypertension; I73.9 Peripheral vascular disease, unspecified; K59.00 Constipation, unspecified; E78.5 Hyperlipidemia, unspecified; E66.3 Overweight; Z68.27 Body mass index [BMI] 27.0-27.9, adult
CPT/HCPCS: 76536; 80048; 80053; 81003; 82306; 82310; 82330; 82570; 83735; 83970; 84100; 84155; 84156; 84165; 84166; 85025; 87081; 87086; 92507; 92523; 92610; 97110; 97112; 97116; 97150; 97163; 97167; 97530; 97535; J2430; J7040; L1820

== ENCOUNTER 2016-11-28 15:25 | Outpatient (CLI) | payer OTHER ==
[~2016-11-28] VITALS: Ht 182.9 cm; Wt 84.1 kg
[2016-11-28 15:29] VITALS: BP 131/84; PULSE 86; RESP 18; Ht 182.9 cm; Wt 84.1 kg
[2016-11-28] MEDS ORDERED: ATOR20TA38 PO (15:45)
[2016-11-28] MEDS ORDERED: LISI20TA11 PO (15:45)
[2016-11-28] MEDS ORDERED: LOSA50TA6 PO (15:45)
[2016-11-28] MEDS ORDERED: CLON-379 PO (15:45)
[2016-11-28] MEDS ORDERED: HYDR12.58 PO (15:45)
[2016-11-28] MEDS ORDERED: CINA60TA PO (15:45)
--- NOTE | 2016-11-28 16:25 | PN ---
Date/Time of Note Date/Time of Note DATE: 11/28/16 TIME: 16:18 Outpatient Progress Note Chief Complaint CVA /hypertension/PVD/hyperlipidemia/obesity HPI CVA/patient had recently acute CVA, right-sided weakness, slight slurred speech , no headache dizziness, no dysphagia at present, Hypertension/no headache or dizziness, on multiple medication, does not want clonidine, PVD/no ulcer, no cramps, Hyperlipidemia/no xanthoma, on medication, Obesity/no history of any hypothyroidism, patient is exercising, Review of Systems Const: No Fever, no chills, no Wt. loss, slight fatigue and weakness, patient slightly obese,, normal appetite, no diaphoresis. Eyes: No pain, no discharge, no redness, no visual change, no foreign body. Occasional right eye discomfort, ENT: No pain, no bleeding, no congestion, no sore throat, no dysphagia, no discharge or rhinitis. Lymph: No adenopathy, no tender nodes, no lymphedema. Resp: No SOB, no cough, no sputum, no wheezing, no chest pain. CV: No chest pain, no palpitaions, no BRAVO, no PND, no edema. GI: Normal appetite, no pain, no nausea, no vomiting, no diarrhea, no blood, no constipation. : No frequency, no urgency, no dysuria, no hematuria, no flank pain, no discharge, no bleeding. Musc: No bone/joint pain, no back pain, no neck pain, no knee pain, no restricted ROM. Skin: No rash, no skin lesions, no erythema, no laceration, no bruising, no pruritus. Neuro: No ARMENDARIZ, no dizziness, no syncope, no seizure, right arm weakness more than lower leg, slight weakness right side of the face, Endo: No polyuria, no polydypsia, no dry-skin, no temp-intolerance. Psych: No hallucinations, no depression, no anxiety, no suicidal ideation. Ext: No edema, no pain, no ulcer, right hemiparesis Physical Exam Vital Signs Date Time Temp Pulse Resp B/P Pulse Ox O2 Delivery O2 Flow Rate FiO2 11/28/16 15:29 97.9 86 18 131/84 98 Room Air General Appearance: A 66 year-old male who appears well-developed, well- nourished, in no acute distress. Slightly obese, HEENT: Head normocephalic, atraumatic. Pupils equal, round, reactive to light and accommodate. Sclerae are no jaundice. Nasal turbinates pink without erythema or nasal discharge. Mucous membranes pink and moist without lesions. Oropharynx clear without any exudate or discharge. NECK: Supple. Trachea midline, No thyromegaly, No cervical lymphadenopathy, No mass, No carotid bruits, No JVD, Carotid pulses 2+ bilaterally. PULMONARY: Clear to auscultaion bilaterally, No retractions, Chest expansion symmetric bilaterally, no rales, no ronchi, no dulness on percussion. CARDIAC: Normal SI and S2, Regular rate and rythm, no murmur, gallop, or rub. GASTROINTESTINAL: Abdomen is soft, non-tender, Non Rigid, No distention, Positive bowel sounds x4 quadrants, Liver normal. SKIN: Warm, dry, no rash, no bruise, no echmosis. EXTREMITIES: Bilateral lower extremities normal, no edema, no phlabitus, pulse palpable, right upper extremity weaker than the lower, MUSCULOSKELETAL: Spine Normal, Non-tender, Normal range of motion, No swelling, no deformity, no clubbing, or cyanosis, the patient has no edema to bilateral lower extremities, dorsalis pedis pulses palpable bilaterally. NEUROLOGIC: The patient is awake, alert, oriented, right facial weakness, responding to yes/no questions appropriately, moving all extremities, cranial nerve intact, right hemiparesis, upper extremity more weaker than lower extremity, Allergies Coded Allergies: No Known Allergy (Unverified , 11/09/16) PMH Hypertension/PVD/hyperlipidemia/obesity/recent CVA Social Hx No smoking no drinking, Family Hx Noncontributory Assessment/Plan Impression CVA/right hemiparesis Hypertension PVD Hyperlipidemia Obesity Plan Patient education done about hypertension hyperlipidemia and CVA, patient encouraged to increase activity, fall precaution, aspiration precaution, Patient encouraged to take all medication, patient does not like clonidine, will hold clonidine only for emergencies if blood pressure about 150, Will increase lisinopril to 40 mg daily,/20 mg twice daily, #60 Patient encouraged to follow with the primary care physician, Medications Home Meds Reported Medications Cinacalcet* (Sensipar*) 60 Mg Tablet, 60 MG PO DAILY, TAB 11/28/16 Clonidine Hcl* (Clonidine Hcl*) 0.1 Mg Tab, 0.1 MG PO Q12, TAB 11/28/16 Losartan Potassium* (Losartan Potassium*) 50 Mg Tablet, 50 MG PO DAILY, TAB 11/28/16 Lisinopril* (Lisinopril*) 20 Mg Tablet, 20 MG PO DAILY, #30 TAB 11/28/16 Atorvastatin Calcium* (Atorvastatin Calcium*) 20 Mg Tablet, 20 MG PO QHS, #30 TAB 11/28/16 Hydrochlorothiazide* (Hydrochlorothiazide*) 12.5 Mg Tablet, 12.5 MG PO DAILY, # 30 TAB 11/28/16 HEAVENLY VENEGAS MD Nov 28, 2016 16:25
== END 2016-11-28 16:44 | disposition home or self-care (01) ==
LOC: DCC 15:25
PROVIDERS: ATTEND Internal Medicine
DX: I63.9 Cerebral infarction, unspecified (principal); I10 Essential (primary) hypertension; E78.5 Hyperlipidemia, unspecified; E66.9 Obesity, unspecified; I73.9 Peripheral vascular disease, unspecified

== ENCOUNTER → 2016-12-12 | Outpatient (CLI) | payer OTHER ==
[~2016-12-12] VITALS: Ht 182.9 cm; Wt 83.2 kg
[~2016-12-12] MED LIST: ATOR20TA38 PO; CINA60TA PO; CLON-379 PO; HYDR12.58 PO; LISI20TA11 PO; LOSA50TA6 PO
[2016-12-12 15:55] VITALS: BP 110/61; PULSE 71; RESP 18; Ht 182.9 cm; Wt 83.2 kg
--- NOTE | 2016-12-12 16:17 | PN ---
Date/Time of Note Date/Time of Note DATE: 12/12/16 TIME: 16:12 Outpatient Progress Note Chief Complaint CVA/hypertension//hyperlipidemia/PVD HPI CVA/patient had recent CVA, patient still has right-sided weakness, and still has slurred speech, but slightly improved, no dysphagia, no fall, Hypertension/no headache or dizziness, no impaired wound, Hyperlipidemia/no xanthoma, on medication, PVD/no leg cramps, Review of Systems Const: No Fever, no chills, no Wt. loss, no Fatigue, normal appetite, no diaphoresis. Eyes: No pain, no discharge, no redness, no visual change, no foreign body. ENT: No pain, no bleeding, no congestion, no sore throat, no dysphagia, no discharge or rhinitis. Lymph: No adenopathy, no tender nodes, no lymphedema. Resp: No SOB, no cough, no sputum, no wheezing, no chest pain. CV: No chest pain, no palpitaions, no BRAVO, no PND, no edema. GI: Normal appetite, no pain, no nausea, no vomiting, no diarrhea, no blood, no constipation. : No frequency, no urgency, no dysuria, no hematuria, no flank pain, no discharge, no bleeding. Musc: no back pain, no neck pain, no knee pain, no restricted ROM. Skin: No rash, no skin lesions, no erythema, no laceration, no bruising, no pruritus. Neuro: No ARMENDARIZ, no dizziness, right-sided weakness, and slurred speech, slightly improved than before, no syncope, no seizure, no focal-weakness. Endo: No polyuria, no polydypsia, no dry-skin, no temp-intolerance. Psych: No hallucinations, no depression, no anxiety, no suicidal ideation. Ext: No edema, no pain, no ulcer, right-sided weakness. Physical Exam Vital Signs Date Time Temp Pulse Resp B/P Pulse Ox O2 Delivery O2 Flow Rate FiO2 12/12/16 15:55 98.1 71 18 110/61 98 Room Air General Appearance: A 66 year-old male who appears well-developed, well- nourished, in no acute distress. HEENT: Head normocephalic, atraumatic. Pupils equal, round, reactive to light and accommodate. Sclerae are no jaundice. Nasal turbinates pink without erythema or nasal discharge. Mucous membranes pink and moist without lesions. Oropharynx clear without any exudate or discharge. NECK: Supple. Trachea midline, No thyromegaly, No cervical lymphadenopathy, No mass, No carotid bruits, No JVD, Carotid pulses 2+ bilaterally. PULMONARY: Clear to auscultaion bilaterally, No retractions, Chest expansion symmetric bilaterally, no rales, no ronchi, no dulness on percussion. CARDIAC: Normal SI and S2, Regular rate and rythm, no murmur, gallop, or rub. GASTROINTESTINAL: Abdomen is soft, non-tender, Non Rigid, No distention, Positive bowel sounds x4 quadrants, Liver normal. SKIN: Warm, dry, no rash, no bruise, no echmosis. EXTREMITIES: Bilateral lower extremities normal, no edema, no phlabitus, pulse palpable, right-sided weakness, MUSCULOSKELETAL: Spine Normal, Non-tender, Normal range of motion, No swelling, no deformity, no clubbing, or cyanosis, the patient has no edema to bilateral lower extremities, dorsalis pedis pulses palpable bilaterally. NEUROLOGIC: The patient is awake, alert, oriented, slightly slurred speech, responding to yes/no questions appropriately, moving all extremities, cranial nerve intact, normal strenght, normal power, normal coordination left-sided, right sided slightly impaired strength, and power and sensation,, normal gait. Allergies Coded Allergies: No Known Allergy (Unverified , 11/09/16) PMH No change Social Hx No change Family Hx No change Assessment/Plan Impression CVA/hypertension/hyperlipidemia/PVD Plan Patient slightly better, strength slightly improved, no fall, Patient education done about blood pressure and CVA, patient continued to take all medication, including aspirin, [place], patient to see primary care physician before the end of the month, patient will need refill, Continue increase activity, and gradually increase the tolerance, Medications Home Meds Reported Medications Cinacalcet* (Sensipar*) 60 Mg Tablet, 60 MG PO DAILY, TAB 11/28/16 Clonidine Hcl* (Clonidine Hcl*) 0.1 Mg Tab, 0.1 MG PO Q12, TAB 11/28/16 Losartan Potassium* (Losartan Potassium*) 50 Mg Tablet, 50 MG PO DAILY, TAB 11/28/16 Lisinopril* (Lisinopril*) 20 Mg Tablet, 20 MG PO DAILY, #30 TAB 11/28/16 Atorvastatin Calcium* (Atorvastatin Calcium*) 20 Mg Tablet, 20 MG PO QHS, #30 TAB 11/28/16 Hydrochlorothiazide* (Hydrochlorothiazide*) 12.5 Mg Tablet, 12.5 MG PO DAILY, # 30 TAB 11/28/16 HEAVENLY VENEGAS MD Dec 12, 2016 16:17
== END | disposition home or self-care (01) ==
LOC: DCC 15:40
PROVIDERS: ATTEND Internal Medicine
DX: Z86.73 Personal history of transient ischemic attack (TIA), and cerebral infarction without residual deficits (principal); I10 Essential (primary) hypertension; E78.5 Hyperlipidemia, unspecified; I73.9 Peripheral vascular disease, unspecified